=== PATIENT | male | born 1960 | race African-American/Black ===

== ENCOUNTER 2020-08-13 20:47 | Inpatient (IN) | payer MEDICAID, OTHER ==
[~2020-08-13] VITALS: Ht 180.3 cm; Wt 109.3 kg
--- NOTE | 2020-08-13 20:49 | NUR ---
TO ER BED [address] C/O BLE, GENITAL SWELLING, GEN WEAKNESS, FREQUENT FALLS X2 WEEKS. PT AAOX4 NO ACUTE DISTRESS NOTED, RESP EVEN AND UNLABORED. PLACE PT ON CARDIAC MONITORING, CONTINUOUS POX. ER NITO TAPIA AT BEDSIDE TO EVAL PT WITH ORDERS RECIEVED. WILL CARRY OUT ORDERS.
--- NOTE | 2020-08-13 20:58 | NUR ---
TOTAL PT CARE DONE NOTED TESTICULAR ABRASSION, BILATERAL LOWER EXTREMITY SWELLING AND MULTIPLE OPEN WOUNDS WITH NO BLEEDING NOTED.
[2020-08-13] MEDS ORDERED: ACETAMINOPHEN ES 500 MG TABLET ONE (21:23)
[2020-08-13] MEDS ORDERED: IV NS 0.9% 500 ML BAG IV ONE (21:30)
[2020-08-13] MEDS ORDERED: ACETAMINOPHEN ES 500 MG TABLET PO ONE (21:30)
[2020-08-13 21:43] LABS: BASOPHILS # (AUTO) 0.1 /CMM (0.0-0.2); BASOPHILS % (AUTO) 0.6 % (0.0-2.0); EOSINOPHILS % (AUTO) 1.9 % (0.0-6.0); HEMATOCRIT 35 % (39-51); HEMOGLOBIN 10.5 g/dL (13.5-17.5); LYMPHOCYTES # (AUTO) 0.5 /CMM (0.8-4.8); LYMPHOCYTES % (AUTO) 4.4 % (20.0-44.0); MEAN CORPUSCULAR HGB CONC 30 g/dl (31.0-36.0); MEAN CORPUSCULAR VOLUME 79 fL (80-96); MONOCYTES # (AUTO) 0.7 /CMM (0.1-1.30); MONOCYTES % (AUTO) 6.4 % (2.0-12.0); NEUTROPHILS % (AUTO) 86.7 % (43.0-81.0); PLATELET COUNT (AUTO) 333 /CMM (150-450); RED BLOOD CELL COUNT(AUTO) 4.35 MIL/uL (4.5-6.0); WHITE BLOOD COUNT (AUTO) 11.5 K/uL (4.3-11.0)
--- NOTE | 2020-08-13 21:43 | NUR ---
PT TRANSPORTED TO RADIOLOGY FOR CT HEAD.
[2020-08-13 21:53] LABS: CALCIUM, SERUM 8.9 mg/dL (8.5-10.1); CARBON DIOXIDE 22 mmol/L (21-32); CHLORIDE 109 mmol/L (98-107); GLUCOSE 95 mg/dL (74-106); SODIUM SERUM 144 mmol/L (136-145); UREA NITROGEN, BLOOD 39 mg/dL (7-18)
[2020-08-13] MEDS ORDERED: ONDANSETRON HCL/PF 4 MG/2 ML VIAL ONE (21:54)
[2020-08-13] MEDS ORDERED: VANCOMYCIN 1 GM VIAL ONE (21:55)
[2020-08-13] MEDS ORDERED: PIPERACILLIN /TAZOBACTAM 3.375 G VIAL IV ONE (21:55)
[2020-08-13] MEDS ORDERED: MORPHINE SULFATE INJ 4 MG/ML DISP.SYRIN ONE (21:55)
[2020-08-13] MEDS: PIPERACILLIN /TAZOBACTAM 3.375 G in IV D5W 50 ML IV ONE ×2 (21:58→22:16)
[2020-08-13] MEDS ORDERED: ONDANSETRON HCL/PF 4 MG/2 ML VIAL IV ONE (22:00)
[2020-08-13] MEDS ORDERED: MORPHINE SULFATE INJ 10 MG/ML DISP.SYRIN IV ONE (22:00)
--- NOTE | 2020-08-13 22:00 | NUR ---
ZOSYN 3.375GM NOT GIVEN. PT REPORTS ALLERGY TO PENICILLIN.
--- NOTE | 2020-08-13 22:04 | NUR ---
US AT BEDSIDE
[2020-08-13 22:06] LABS: ALANINE AMINOTRANSFERASE 27 U/L (12-78); ALBUMIN 2.6 g/dL (3.4-5.0); ALKALINE PHOSPHATASE 121 U/L (46-116); ASPARTATE AMINOTRANSFERASE 35 U/L (15-37); BILIRUBIN,DIRECT 0.8 mg/dL (0.0-0.2); BILIRUBIN,TOTAL 1.6 mg/dL (0.2-1.0); TOTAL PROTEIN, SERUM 8.2 g/dL (6.4-8.2)
[2020-08-13] MEDS: VANCOMYCIN 1 GM in IV D5W 250 ML IV ONE ×2 (22:08→22:25)
--- NOTE | 2020-08-13 22:13 | NUR ---
KATHARINEID SWABBED, SENT TO LAB.
--- NOTE | 2020-08-13 22:24 | NUR ---
HEMANT MENSAH [facility] PAGED FOR ADMISSION.
--- NOTE | 2020-08-13 22:40 | NUR ---
ER NITO TAPIA SPOKE TO HEMANT MENSAH [facility] REGARDING PT ADMIOSSION.
--- NOTE | 2020-08-13 23:06 | NUR ---
LAB CALLED REGARDING NEGATIVE COVID RESULT.
--- NOTE | 2020-08-13 23:08 | NUR ---
CALLED NURSING SUP FOR BED
[2020-08-13] MEDS ORDERED: ONDANSETRON HCL/PF 4 MG/2 ML VIAL IVP PRN (23:30)
[2020-08-13] MEDS ORDERED: TDAP [DIPH/PERTUSSIS/TET] 0.5 ML VIAL IM ONE (23:30)
[2020-08-13] MEDS ORDERED: FUROSEMIDE 20 MG/2 ML VIAL IV ONE (23:30)
[2020-08-13] MEDS ORDERED: MAG HYDROX/AL HYDROX/SIMETH 30 ML UDC PO PRN (23:30)
[2020-08-13] MEDS ORDERED: ACETAMINOPHEN 325 MG TABLET PO PRN (23:30)
[2020-08-13] MEDS ORDERED: MAGNESIUM HYDROXIDE 30 ML UDC PO PRN (23:30)
[2020-08-13] MEDS ORDERED: HYDROCODONE/APAP 5/325MG TABLET PO PRN (23:30)
[2020-08-13] MEDS ORDERED: ZOLPIDEM TARTRATE 5 MG TABLET PO PRN (23:30)
[2020-08-13] MEDS ORDERED: Z GUARD REMEDY 2 OZ OINT TP PRN (23:30)
--- NOTE | 2020-08-13 23:30 | NUR ---
PER RN SSN/SSBN WEAPONS EQUIPMENT OPERATOR PT WILL BE GOING TO 253 FOR MEDSURGE OVERFLOW.
--- NOTE | 2020-08-13 23:47 | NUR ---
PER RN SUP, PT WILL BE GOING TO 207.
--- NOTE | 2020-08-13 23:58 | NUR ---
REPORT CALLED TO HAND GLASS CUTTERTAMEKA MONDRAGON. WILL TRANSPORT PT VIA ACLS PROTOCOL.
[2020-08-14] VITALS: BP 175/108
--- NOTE | 2020-08-14 | NUR ---
STUD SETTER NOTES RECEIVED REPORT FROM ED, RN; AWAITING PATIENT ARRIVAL TO UNIT
--- NOTE | 2020-08-14 00:11 | NUR ---
CONCRETE CRUSHER LOADER OPERATOR NOTES PATIENT ARRIVED TO UNIT VIA GURNEY; ACCOMPANIED BY 2 ER STAFF; PATIENT AWAKE, A/OX4, BREATHING EVEN AND UNLABORED; SLIGHT DRY COUGH NOTED; PATIENT TOLERATING ROOM AIR WELL; SATTING AT 97% ON ROOM AIR; PATIENT DENIES ANY MEDICAL HISTORY BUT REPORTS HE IS ALLERGIC TO PCN; PATIENT REPORTED HE HAS BEEN HOMELESS SINCE NOVEMBER AND HAS TROUBLE FINDING HOMELESS SHELTERS AVAILABLE D/T COVID; PATIENT REPORTED HE ASKED SOMEONE TO CALL 911 FOR HIM BECAUSE "IT IS TIME TO GO TO THE HOSPITAL". PATIENT VERBALIZED, "WHATEVER ER CHECKED FROM MY BAGS, ARE ALL IN THERE, TRUST ME.'' PATIENT DID NOT WANT US TO GO THROUGH BELONGINGS AGAIN HE STATED HE IS VERY TIRED AND WOULD LIKE TO JUST GET SOME REST; PATIENT DENIES PAIN; SKIN ASSESSMENT DONE; VITALS OBTAINED; L AC #18 INTACT AND PATENT, FLUSHING WELL; NO S/S OF REDNESS OR INFILTRATION NOTED; PER ER, VANCO COMPLETED; PATIENT ORIENTED TO UNIT AND TO STAFF; SAFETY PRECAUTIONS IMPLEMENTED; BED LOCKED IN LOW POSITION; SIDE RAILSX2; CALL LIGHT WITHIN REACH; WILL CONT TO MONITOR Addendum: 08/14/20 at 0101 by NATE MONTGOMERY RN VITAL SIGNS BP: 175/108 HR: 122 RR: 20 SPO2: 97% ON ROOM AIR TEMP: 98.4F PATIENT DENIES PAIN AND REPORTED HE DOES NOT WANT TO BE MEDICATED; ALL HE WANTS IS TO SLEEP; NO DISTRESS NOTED; WILL CONT TO MONITOR PATIENT
[2020-08-14] MEDS ORDERED: VANCOMYCIN 1 GM in IV D5W 250ml IV ONE (00:30)
[2020-08-14] MEDS ORDERED: TDAP [DIPH/PERTUSSIS/TET] 0.5 ML VIAL IM ONE (00:38)
--- NOTE | 2020-08-14 00:45 | NUR ---
CROP PULLER NOTES SPOKE WITH ED FROM ER, TDAP WILL BE GIVEN BY ER NURSE; LASIX SCHEDULED 2330 GIVEN LATE, PATIENT ARRIVAL TIME ON UNIT 0011; WILL CONT TO MONITOR
--- NOTE | 2020-08-14 02:17 | NUR ---
ROUTE CDL DRIVER NOTES VTE SCORE OF 5; SUSHMA MARCOS NOTIFIED; PER OFFICE COORDINATOR RECEPTIONIST, ELIQUIS 2.5MG PO BID; ORDERS RECEIVED; WILL CONT TO MONITOR
--- NOTE | 2020-08-14 02:44 | NUR ---
METER TESTER PRIMARY NOTES RECEIVED LACTIC ACID RESULT FROM IRIS ADAMS
[2020-08-14 04:00] VITALS: BP 165/85
--- NOTE | 2020-08-14 06:45 | NUR ---
SCHOOL MANAGER CLOSING NOTES PATIENT RESTING IN BED COMFORTABLY; A/OX4, BREATHING EVEN AND UNLABORED; TOLERATING ROOM AIR WELL; SLIGHT COUGH NOTED; TELE MONITOR READS SINUS RHYTHM - SINUS TACHY 112; L AC #18 SL, INTACT AND PATENT; FLUSHING WELL; ALL NEEDS RENDERED; SAFETY PRECAUTIONS IMPLEMENTED; BED LOCKED IN LOW POSITION; SIDE RAILSX2; CALL LIGHT WTIHIN EASY REACH; WILL ENDORSE CATHRYN TO ONCOMING SHFIT
[2020-08-14 07:04] LABS: BASOPHILS # (AUTO) 0.1 /CMM (0.0-0.2); BASOPHILS % (AUTO) 0.7 % (0.0-2.0); EOSINOPHILS % (AUTO) 1.8 % (0.0-6.0); HEMATOCRIT 28 % (39-51); HEMOGLOBIN 8.9 g/dL (13.5-17.5); LYMPHOCYTES # (AUTO) 0.6 /CMM (0.8-4.8); LYMPHOCYTES % (AUTO) 6.3 % (20.0-44.0); MEAN CORPUSCULAR HGB CONC 32 g/dl (31.0-36.0); MEAN CORPUSCULAR VOLUME 78 fL (80-96); MONOCYTES % (AUTO) 10.2 % (2.0-12.0); NEUTROPHILS # (AUTO) 8.1 /CMM (1.8-8.9); PLATELET COUNT (AUTO) 269 /CMM (150-450); RED BLOOD CELL COUNT(AUTO) 3.59 MIL/uL (4.5-6.0); WHITE BLOOD COUNT (AUTO) 10.1 K/uL (4.3-11.0)
[2020-08-14 07:27] LABS: CALCIUM, SERUM 8.5 mg/dL (8.5-10.1); MAGNESIUM 1.9 mg/dL (1.8-2.4); PHOSPHORUS 3.2 mg/dL (2.5-4.9)
--- NOTE | 2020-08-14 07:30 | NUR ---
TELE/RN OPENING NOTE Received patient in bed, A&O x 4. Denies any pain/discomfort at this time. Breathing even and non-labored on RA, no SOB noted. No cardiac distress noted, on tele monitor reading ST 111. IV access noted on LAC #18, patent and intact, and flushing well. Sensation from all peripheral extremities intact. Bed locked in its lowest position, side rails x 2 up, call light in hand. Will continue with current medical management.
--- NOTE | 2020-08-14 08:32 | NUR ---
WOUND CARE CONSULT: REVIEWED CHART, NURSING DOCUMENTATION AND PHOTOS WHICH INDICATE WOUND TO SCROTUM AND WOUNDS TO LOWER EXTREMITIES, PRESENT ON ADMISSION. RECOMMEND SURGICAL AND DPM CONSULTS. DR POND AND DR FLORES NOTIFIED OF CONSULT REQUESTS. CURRENT DELIA SCORE IS 16. MD IN AGREEMENT WITH PLAN OF CARE.
[2020-08-14] MEDS ORDERED: APIXABAN 2.5 MG TABLET PO SCH (09:00)
--- NOTE | 2020-08-14 09:00 | NUR ---
TELE/RN NOTE Non-administered Eliquis 2.5 mg, notified [facility] SCIENTIFIC SYSTEMS ANALYST about patient's H&H dropping from 10.5/35 yesterday to 8.9/28 today. Also, per wound care nurse, Dr. Newell and Dr. Dorado notified for surgical and dpm consult. SUSHMA Sanz agreed to hold eliquis. No s/s of bleeding noted at this time. Will continue to monitor closely.
[2020-08-14] MEDS: NITROGLYCERIN 30 GM TUBE TP SCH ×2 (09:29→21:21)
[2020-08-14] MEDS: hydrALAZINE HCL 50 MG TABLET PO SCH ×3 (09:29→16:40)
[2020-08-14 11:15] LABS: THYROID STIMULATING HORMONE 4.932 uIU/mL (0.358-3.74)
--- NOTE | 2020-08-14 12:00 | NUR ---
TELE/RN NOTE Clarified DVT pump order with SUSHMA Sanz. Per Umu, DVT pump is contraindicated for patient due to BLE wounds. Noted and charted.
--- NOTE | 2020-08-14 12:00 | NUR ---
TELE/RN ALTON Florentino EDGER OPERATOR at bedside, assessed patient and explained plan of care. Clarified NPO order, per Umu, patient will be NPO except meds until abdominal ultrasound is done. When abdominal ultrasound is done, patient can be on low sodium diet. In addition, she ordered heparin 5000U SQ Q12H for chemical prophylaxis and discontinued apixaban 2.5 mg PO BID. Addendum: 08/14/20 at 1505 by SAMANTHA AMOS RN Orders noted and carried out. Will continue closely.
[2020-08-14] MEDS: HEPARIN SODIUM, PORCINE 5000 UNITS/1 ML VIAL SQ SCH ×2 (13:39→21:23)
--- NOTE | 2020-08-14 14:20 | NUR ---
Telecommunications Clerk consult requested by SUSHMA Bourne as patient is homeless. SW contacted TAMEKA Pena to confirm if patient is interviewable. Per Becky, patient is interviewable and will assist this SW to conduct SS assessment.
[2020-08-14 14:30] VITALS: BP 148/89
--- NOTE | 2020-08-14 14:30 | NUR ---
TELE/RN NOTE Re-checked patient's blood pressure after administering scheduled hydralazine 100 mg PO, noted at 148/89. Will continue to monitor closely.
--- NOTE | 2020-08-14 14:31 | NUR ---
TAMEKA Pena contacted this for this SW to conduct SS assessment. Patient is alert and oriented x4. Patient is a 60 year-old male. Patient reported to this SW that he has been homeless for approximately 8 months. Patient reports that he has been homeless at the start of the COVID-19 pandemic. Patient reported to this SW that he has been in contact with social security offices for him to obtain SSD. Patient does report that he is currently received approximately $200 in food stamps. Patient currently reports that he has had difficulty walking and standing because his knees and legs swell up. SW assessed patient for community resources and discussed with the patient. Patient declined resources stating "I do not want that. I do not like shelters, I am able to care for myself." Patient reports that prior to city-wide closure, patient had been sleeping in motel rooms. SW and patient discussed referral to [facility], patient denied this referral. Patient informed this SW that [facility] PT has seen the patient and patient would like to be placed in a usp facility if PT and patient's physician are agreeable in this plan. SW informed the patient that this SW would contact Case Management team to assist in a safe and proper discharge. Patient denied alcohol and drug use. Patient reported cigarette use, approximately 1/2 or 1 full box of cigarettes a day. Patient denied mental health diagnosis. Patient denied SI and HI. Patient denied auditory and visual hallucinations. Patient was calm and cooperative during this assessment. Patient thought process was clear and concise. Patient's speech was normal. Plan: SW to follow-up with case management team. SW remains available for all needs regarding this patient.
[2020-08-14 14:49] LABS: B-TYPE NATRIURETIC PEPTIDE 42478 PG/ML (0-125)
[2020-08-14 16:00] VITALS: BP 165/83
--- NOTE | 2020-08-14 19:23 | NUR ---
TELE/RN NOTE Collected urine specimen for urinalysis, sent to lab.
--- NOTE | 2020-08-14 19:25 | NUR ---
TELE/RN CLOSING NOTE Patient resting in bed, A&O x 4. All needs met and attended to. Denies any pain/discomfort throughout shift. Breathing even and non-labored on RA, no SOB noted. No cardiac distress noted, on tele monitor reading ST 108. IV access noted on LAC #18, patent and intact, and flushing well. Sensation from all peripheral extremities intact. Fall precautions maintained. Will endorse to health care coach nurse.
[2020-08-14 20:00] VITALS: BP 186/115
[2020-08-14 20:18] LABS: BILIRUBIN,URINE SMALL (NEGATIVE); BLOOD, URINE NEGATIVE Ery/uL (NEGATIVE); COLOR,URINE YELLOW (YELLOW); LEUKOCYTE ESTERASE ,URINE SMALL (NEGATIVE); NITRITE, URINE NEGATIVE (NEGATIVE); PH,URINE 5.5 (5.0-8.0); PROTEIN,URINE 100 mg/dl (NEGATIVE); UGLUCOSE NEGATIVE (NEGATIVE); UROBILINOGEN,URINE 0.2 EU/dL (0.2)
[2020-08-14 20:57] LABS: BACTERIA,URINE 1+ /HPF (None Seen); RBC,URINE 0-2 /HPF (0-2); SQUAMOUS EPITHELIAL CELL,UR 0-2 /HPF (None Seen)
[2020-08-14] MEDS: LEVOFLOXACIN 250 MG /D5W 50 ML 250 MG in PREMIX 1 EA IV SCH (21:20)
--- NOTE | 2020-08-14 21:47 | NUR ---
text HEMANT DOSHI REGARDING ELEVATED BLOOD PRESSURE 197/112 PATIENT ASYMPTOMATIC WAITING FOR RESPONSE
[2020-08-14] MEDS: VANCOMYCIN 1.5 GM in IV D5W 500 ML IV SCH (22:32)
[2020-08-15] VITALS (8 sets, daily range): BP systolic 124–180; BP diastolic 66–112
[2020-08-15] MEDS: CLONIDINE HCL 0.1 MG TABLET PO PRN ×2 (00:35→12:17)
--- NOTE | 2020-08-15 03:00 | NUR ---
rn notes/covid norris/pcr result: called lab, spoke with eleazar, verified about result of covid pcr. per eleazar, result is NEGATIVE, and resulted on 08/14/2020 at 2133 verified by TOYIN. For some reason, on [facility] serology tab, result of COVID PCR is showing only date of 08/13/2020 at 2201 (when specimen was collected)and next to it was the result " negative " (not showing information what date and time result is posted) and Covid19 antigen result is Negative dated 08/13/2020 at 2215. Eleazar then faxed the copy of the said Covid PCR Result, with posted result date and time and person who verified it. Copy will be given to TAMEKA Marr and another copy will be given to Aliyah/MSElio for record purposes.
--- NOTE | 2020-08-15 03:31 | NUR ---
TELE/RN RECEIVED PATIENT FROM [facility] [place] FOR CONTINUITY OF CARE. PATIENT AWAKE, ALERT ORIENTED, COMFORTABLE, NO C/O PAIN, NO DISTRESS NOTED, MADE COMFORTABLE IN BED, WILL MONITOR.
[2020-08-15] MEDS ORDERED: CLONIDINE HCL 0.1 MG TABLET PO ONE (05:00)
--- NOTE | 2020-08-15 06:29 | NUR ---
TELE/RN PATIENT IS STILL SLEEPING, APPEAR COMFORTABLE, NO SIGNS OF DISTRESS NOTED, ALL NEEDS ATTENDED AT THIS TIME, WILL CONTINUE TO MONITOR.
[2020-08-15 07:10] LABS: BASOPHILS # (AUTO) 0.1 /CMM (0.0-0.2); BASOPHILS % (AUTO) 0.8 % (0.0-2.0); EOSINOPHILS % (AUTO) 5.8 % (0.0-6.0); HEMATOCRIT 28 % (39-51); HEMOGLOBIN 8.7 g/dL (13.5-17.5); LYMPHOCYTES # (AUTO) 0.9 /CMM (0.8-4.8); LYMPHOCYTES % (AUTO) 10.5 % (20.0-44.0); MEAN CORPUSCULAR HGB CONC 32 g/dl (31.0-36.0); MEAN CORPUSCULAR VOLUME 78 fL (80-96); MONOCYTES # (AUTO) 0.8 /CMM (0.1-1.30); MONOCYTES % (AUTO) 9.7 % (2.0-12.0); NEUTROPHILS # (AUTO) 6.3 /CMM (1.8-8.9); NEUTROPHILS % (AUTO) 73.2 % (43.0-81.0); PLATELET COUNT (AUTO) 243 /CMM (150-450); RED BLOOD CELL COUNT(AUTO) 3.54 MIL/uL (4.5-6.0); WHITE BLOOD COUNT (AUTO) 8.6 K/uL (4.3-11.0)
--- NOTE | 2020-08-15 07:15 | NUR ---
ELECTRIC MOTOR TESTER ASSEMBLER OPENING NOTE Received patient asleep in bed appears calm and relaxed. On room air tolerating well. Patient is AO X4. Tele monitor reading SR to ST. Patient uses the urinal at bedside. Noted with bilateral lower extremities swelling and scaly skin. Per patient it does not hurt but itches a lot. Patient is currently NPO for ultrasound of the abdomen. Has LAC #18 flushes well. In the report patient has a high blood pressure. Will cont to monitor. Safety measures maintained. Call light within reach. Bed locked and on lowest position. Will cont to monitor.
[2020-08-15 07:42] LABS: ALBUMIN 1.8 g/dL (3.4-5.0); BILIRUBIN,TOTAL 0.9 mg/dL (0.2-1.0); CALCIUM, SERUM 8.3 mg/dL (8.5-10.1); CREATININE 2.8 mg/dL (0.6-1.3); MAGNESIUM 1.8 mg/dL (1.8-2.4); PHOSPHORUS 3.5 mg/dL (2.5-4.9); POTASSIUM 3.6 mmol/L (3.5-5.1)
[2020-08-15] MEDS ORDERED: AMLODIPINE BESYLATE 5 MG TABLET PO SCH (09:30)
[2020-08-15] MEDS: HEPARIN SODIUM, PORCINE 5000 UNITS/1 ML VIAL SQ SCH ×2 (09:41→20:15)
[2020-08-15] MEDS: NITROGLYCERIN 30 GM TUBE TP SCH ×2 (09:42→20:15)
[2020-08-15] MEDS: hydrALAZINE HCL 50 MG TABLET PO SCH ×3 (09:42→16:04)
--- NOTE | 2020-08-15 09:54 | NUR ---
URINE COLLECTED FROM PATIENT. CALLED LAB SPOKE TO
[2020-08-15] MEDS: NIFEdipine XL (30MG) 30 MG TAB PO SCH (11:00)
--- NOTE | 2020-08-15 11:11 | NUR ---
CALLED DR PARKER TO INFORM US ABDOMEN RESULTS. AWAITING RESPONSE.
[2020-08-15 12:33] LABS: CREATININE, URINE 192.4 MG/DL (30.0-125.0); URINE TOTAL PROTEIN 139.5 mg/dL (0-11.9)
--- NOTE | 2020-08-15 16:00 | NUR ---
PATIENT REQUEST SANDWICH BEFORE DINNER. CALLED DIETARY, PICKED UP SANDWICH AND GAVE TO PATIENT.
--- NOTE | 2020-08-15 17:07 | NUR ---
PATIENT REFUSED HYGIENE CARE. OFFERED X3 AND EDUCATED ABOUT PERSONAL HYGIENE. PATIENT CONTINUED TO REFUSE HYGIENE CARE.
--- NOTE | 2020-08-15 18:41 | NUR ---
RN CLOSING NOTE AT THIS TIME, PATIENT IS IN BED SLEEPING. A&OX4. ALL NEEDS MET AND ATTENDED TO. PATIENT REFUSED HYGIENE CARE THIS SHIFT. PATIENT HAS DENIED ANY PAIN/DISCOMFORT THROUGHOUT THE SHIFT. OXGYEN SATURATION 98% ON ROOM AIR, NO SOB OR RESPIRATORY DISTRESS AT THIS TIME. TELE MONITOR READING SINUS TACHYCARDIA ON TELE MONITOR. IV ACCESS ON LAC #18, PATENT AND INTACT. FLUSHING WELL. ALL SAFETY MEASURES TAKEN PER HOSPITAL POLICY. BED LOCKED IN LOWEST POSITION, SIDE RAILS UPX2, CALL LIGHT WITHIN REACH. WILL ENDORSE TO ENERGY CONSULTANT FOR CATHRYN.
--- NOTE | 2020-08-15 19:10 | NUR ---
RECEIVED PT ON BED AWAKE A/O X4 ABLE TO SAY NEEDS ON ROOM AIR SPO2 99% NO SIGN AND SYMPTOMS OF ANY DISTRESS, TELE MONITOR READS SINUS RHYTHM 100'S HAVE L AC IV # 18 PATENT AND FLUSHED, SAFETY MEASURE MAINTAINED BED ON LOWEST POSITION AND LOCKED SIDE RAILS UP WILL CONT TO MONITOR
[2020-08-15] MEDS: LEVOFLOXACIN 250 MG /D5W 50 ML 250 MG in PREMIX 1 EA IV SCH (20:14)
[2020-08-15] MEDS ORDERED: IPRATROPIUM NEB FS 0.5 MG/2.5 ML AMPUL.NEB NEB PRN (22:00)
[2020-08-15] MEDS ORDERED: ALBUTEROL FS 2.5 MG/0.5 ML VIAL.NEB NEB PRN (22:00)
[2020-08-16] VITALS: BP 137/88
[2020-08-16 04:00] VITALS: BP 149/78
[2020-08-16 06:32] LABS: CALCIUM, SERUM 8.3 mg/dL (8.5-10.1); CREATININE 2.6 mg/dL (0.6-1.3); POTASSIUM 3.6 mmol/L (3.5-5.1)
--- NOTE | 2020-08-16 07:15 | NUR ---
RN OPENING NOTES RECEIVED PT ON BED AWAKE, A/O X4. ON ROOM AIR SATURATING @99%. NO SOB OR ANY RESPIRATORY DISTRESS NOTED. TELE MONITOR READING SINUS RHYTHM. L AC #18 INTACT, PATENT AND FLUSHED. NO PAIN REPORTED AT THIS TIME. SAFETY MEASURE IMPLEMENTED. CALL LIGHT WITHIN REACH. BED LOCKED AND AT LOWEST POSITION WITH SIDE RAILS UP. WILL CONTINUE TO MONITOR
--- NOTE | 2020-08-16 07:32 | NUR ---
PT ON BED AWAKE NO SIGN AND SYMPTOMS OF RESPIRATORY DISTRESS, SPO2 92% ON 2L VIA NC NO SIGNIFICANT CHANGES ON CONDITION NOTED ALL NEEDS ATTENDED SAFETY MEASURE MAINTAINED CALL LIGHT WITHIN REACH BED ON LOWEST POSITION AND LOCKED WILL ENDORSED TO AM SHIFT NURSE
--- NOTE | 2020-08-16 07:33 | NUR ---
PT ON CHAIR SITTING NO SIGN AND SYMPTOMS OF RESPIRATORY DISTRESS, SPO2 95% ON O2 2L VIA NC NO SIGNIFICANT CHANGES ON CONDITION NOTED ALL NEEDS ATTENDED DILAUDID WAS GIVEN PRN PER PT REQUEST SAFETY MEASURE MAINTAINED CALL LIGHT WITHIN REACH BED ON LOWEST POSITION AND LOCKED WILL ENDORSED TO AM SHIFT NURSE
[2020-08-16 08:00] VITALS: BP 159/86
[2020-08-16] MEDS: NITROGLYCERIN 30 GM TUBE TP SCH (08:20)
[2020-08-16] MEDS: hydrALAZINE HCL 50 MG TABLET PO SCH ×3 (08:20→17:44)
[2020-08-16] MEDS: NIFEdipine XL (30MG) 30 MG TAB PO SCH (08:21)
[2020-08-16] MEDS: HEPARIN SODIUM, PORCINE 5000 UNITS/1 ML VIAL SQ SCH ×2 (08:32→20:08)
[2020-08-16 09:14] LABS: PTH, INTACT 126 pg/mL (15-65)
[2020-08-16] MEDS: ISOSORBIDE DINITRATE (20MG) 20 MG TABLET PO SCH ×2 (11:00→17:44)
[2020-08-16] MEDS: VANCOMYCIN 1.5 GM in IV D5W 500 ML IV SCH (11:02)
[2020-08-16 12:00] VITALS: BP 135/62
[2020-08-16] MEDS: METOPROLOL TARTRATE 50 MG TABLET PO SCH ×2 (12:40→17:44)
[2020-08-16 16:00] VITALS: BP 123/77
--- NOTE | 2020-08-16 19:20 | NUR ---
RN CLOSING NOTES PT RESTING IN BED AWAKE, A/O X4. ON ROOM AIR SATURATING @99%. NO SOB OR ANY RESPIRATORY DISTRESS NOTED. TELE MONITOR READING SINUS RHYTHM. L AC #18 INTACT, PATENT AND FLUSHED. NO PAIN REPORTED AT THIS TIME. SAFETY MEASURE IMPLEMENTED. CALL LIGHT WITHIN REACH. BED LOCKED AND AT LOWEST POSITION WITH SIDE RAILS UP. WILL ENDORSE TO NIGHT NURSE FOR CATHRYN
[2020-08-16] MEDS: LEVOFLOXACIN 250 MG /D5W 50 ML 250 MG in PREMIX 1 EA IV SCH (19:58)
[2020-08-16 20:00] VITALS: BP 123/79
--- NOTE | 2020-08-16 20:00 | NUR ---
RN NOTES PATIENT AWAKE, ALERT, AND ORIENTED X4. ON ROOM AIR SATURATING 96%. NO SOB OR ANY RESPIRATORY DISTRESS. DENIES ANY PAIN OR DISCOMFORT AT THIS TIME. WITH RIGHT HAND #22, PATENT, INTACT, AND FLUSHED. BED LOCKED AND IN LOWEST POSITION. SIDE RAILS UP X2. ALL SAFETY MEASURES IMPLEMENTED. CALL LIGHT WITHIN REACH. WILL CONTINUE TO MONITOR.
--- NOTE | 2020-08-17 | NUR ---
PT PULLED OUT IV. PT IS CONFUSED AND UNAWARE OF ACTIONS. CHARGE NURSE MADE AWARE. WILL CONTINUE TO CLOSELY MONITOR. Addendum: 08/18/20 at 0008 by GIGI CASTELLANOS RN WRONG DATE DOCUMENTED
[2020-08-17] MEDS: METOPROLOL TARTRATE 50 MG TABLET PO SCH ×4 (00:58→17:43)
[2020-08-17 04:00] VITALS: BP 130/75
--- NOTE | 2020-08-17 04:45 | NUR ---
0445 SUMMONED TO PATIENT'S ROOM BY RN NOLBERTO, FOUND PATIENT SITTING ON THE FLOOR LEANING ON SIDE BED. WHEN ASKED HOW HE FELL PATIENT STATED HE WAS TRYING TO REACH FOR SOMETHING AND SLIPPED. PATIENT ABLE TO ASSIST WHEN PUT BACK TO BED BY 3 RNS. DENIES PAIN OR ANY DISCOMFORT WHEN ASKED. NO NEW SKIN BREAKDOWN NOTED. AM CARE RENDERED. INSTRUCTED PATIENT TO USE CALL LIGHT FOR ASSISTANCE. PLACED SIDE RAILS UP AND BED ALARM TURNED ON. VITAL SIGNS TAKEN FOLLOWS BP 131/76, HR75, RR20, O2 SAT 100% TEMP 97.6. NOTIFIED DR. CRUZ OF INCIDENT. AWAITING CALL BACK. NOTIFIED BALLAST CLEANING MACHINE OPERATOR CYNTHIA OF INCIDENT.
[2020-08-17 06:21] LABS: CALCIUM, SERUM 7.1 mg/dL (8.5-10.1); CREATININE 2.3 mg/dL (0.6-1.3); POTASSIUM 3.5 mmol/L (3.5-5.1)
--- NOTE | 2020-08-17 06:45 | NUR ---
3545 DR CRUZ REPLIED WITH NO NEW ORDER BUT TO MONITOR. PATIENT AWAKE IN BED WATCHING TV, NO SIGNS OF DISTRESS NOTED. NO CHANGES IN NEURO STATUS NOTED. CONT TO DENY PAIN WHEN ASKED. KEPT CLEAN AND COMFORTABLE. ALL NEEDS ANTICIPATED. BED AT LOWEST POSITION WITH ALARM ON FOR SAFETY. SIDE RAILS UP AND CALL LIGHT PLACED WITHIN EASY REACH OF PATIENT. INSTRUCTED TO CALL FOR ASSISTANCE.
--- NOTE | 2020-08-17 07:30 | NUR ---
RN NOTES PATIENT ALERT, AND ORIENTED X4. ON ROOM AIR SATURATING 99%. NO SOB OR ANY RESPIRATORY DISTRESS. DENIES ANY PAIN OR DISCOMFORT AT THIS TIME. WITH RIGHT WRIST #22, PATENT, INTACT, AND FLUSHED. BED LOCKED AND IN LOWEST POSITION. SIDE RAILS UP X2. BED ALARM ON. ALL SAFETY MEASURES IMPLEMENTED. CALL LIGHT WITHIN REACH. ENDORSED TO NEXT SHIFT.
--- NOTE | 2020-08-17 07:30 | NUR ---
RN OPENING NOTES RECEIVED PATIENT IN BED, A/OX2, ON ROOM AIR, NO SOB, NO RESP DISTRESS NOTED, SPO2 IS 95%, PATIENT IS ON BED REST, BLE SCABS NOTED ON SKIN, CARDIAC DIET NOTED, IV LINE R WRIST, PATENT AND INTACT, FLUSHES WELL, HOB ELEVATED, SIDE RAILS UP, BED ALARM IS ON,SAFETY MEASURES IN PLACE CALL LIGHT IN REACH, WILL CONT TO MONITOR
[2020-08-17 08:00] VITALS: BP 125/68
[2020-08-17] MEDS: HEPARIN SODIUM, PORCINE 5000 UNITS/1 ML VIAL SQ SCH ×2 (08:38→21:49)
[2020-08-17] MEDS: NIFEdipine XL (30MG) 30 MG TAB PO SCH (08:39)
[2020-08-17] MEDS: hydrALAZINE HCL 50 MG TABLET PO SCH ×3 (08:40→17:39)
[2020-08-17] MEDS: ISOSORBIDE DINITRATE (20MG) 20 MG TABLET PO SCH ×2 (08:40→17:42)
[2020-08-17 12:00] VITALS: BP 124/71
[2020-08-17 15:07] LABS: *SPE A/G RATIO 0.6 (0.7-1.7); *SPE ALPHA-1-GLOBULIN 0.3 g/dL (0.0-0.4); *SPE ALPHA-2-GLOBULIN 0.8 g/dL (0.4-1.0); *SPE BETA GLOBULIN 0.9 g/dL (0.7-1.3); *SPE GLOBULIN, TOTAL 3.6 g/dL (2.2-3.9); *SPE M-SPIKE Not Observed g/dL (Not Observed); *SPEGAMMA GLOBULIN 1.6 g/dL (0.4-1.8)
--- NOTE | 2020-08-17 18:59 | NUR ---
RN CLOSING NOTES PATIENT REMAINS IN BED, A/OX2/3, ON ROOM AIR, TOLERATING WELL, , SPO2 IS 97%, PATIENT IS ON BED REST, SKIN CARE AND HYGIENE ASSISTANCE PROVIDED, MEDS GIVEN, IV LINE R WRIST, PATENT AND INTACT, FLUSHES WELL, HOB ELEVATED, SIDE RAILS UP, BED ALARM IS ON,SAFETY MEASURES IN PLACE CALL LIGHT IN REACH, WILL ENDORSE TO PM SHIFT RN FOR CATHRYN
--- NOTE | 2020-08-17 19:05 | NUR ---
RN OPENING NOTES RECEIVED PT IN BED. ON ROOM AIR NO SHORTNESS OF BREATH OR DIFFICULTY BREATHING NOTED AT THIS TIME. BREATHING IS EVEN AND UNLABORED. PT DROWSY. AT THIS TIME. SPEECH IS UNCLEAR. ENDORSED BY AM NURSE BASELINE FOR PT. PT PULLED OUT IV SITE. WILL APPLY NEW LINE. PT HAS SCABS AND OPEN WOUNDS ON BLE. SKIN TEAR OF THE SCROTUM NOTED. PT DENIES PAIN AT THIS TIME. SAFETY MEASURES IN PLACE. HOB ELEVATED. BED LOCKED IN LOWEST POSITION. BED ALARM ON. ID BAND ON. CALL LIGHT WITHIN REACH.
[2020-08-17 20:00] VITALS: BP 143/67
[2020-08-17] MEDS: LEVOFLOXACIN (250MG) 250 MG TABLET PO SCH ×2 (20:45→21:24)
--- NOTE | 2020-08-17 20:50 | NUR ---
PERFORMED NEURO ASSESSMENT AND NURSES SWALLOW ASSESSMENT DUE TO PT BEING DROWSY WITH PO MEDICATIONS SCHEDULED.
[2020-08-17] MEDS: VANCOMYCIN 1.5 GM in IV D5W 500 ML IV SCH (22:34)
--- NOTE | 2020-08-18 00:08 | NUR ---
PT PULLED OUT IV. PT IS CONFUSED AND UNAWARE OF ACTIONS. WILL APPLY NEW LINE. CHARGE NURSE MADE AWARE. WILL CONTINUE TO CLOSELY MONITOR.
--- NOTE | 2020-08-18 00:10 | NUR ---
NEW IV LINE RIGHT HAND #22 WITH GOOD BLOOD RETURN NOTED WILL CONTINUE TO MONITOR.
[2020-08-18] MEDS: METOPROLOL TARTRATE 50 MG TABLET PO SCH ×3 (01:00→12:25)
[2020-08-18 04:00] VITALS: BP 140/80
--- NOTE | 2020-08-18 04:51 | NUR ---
PT RESTING, ON ROOM AIR STILL. TOLERATING WELL. O2 SATURATING IS 98%. DENIES PAIN AT THIS TIME. WILL CONTINUE TO MONITOR.
[2020-08-18 06:57] LABS: CALCIUM, SERUM 8.4 mg/dL (8.5-10.1); CREATININE 2.8 mg/dL (0.6-1.3)
--- NOTE | 2020-08-18 07:21 | NUR ---
RN CLOSING NOTES PT CURRENTLY RESTING IN BED. STILL CONFUSED YET COOPERATIVE. NEEDS ATTENDED. NO COMPLAINT OF PAIN THROUGHOUT THE NIGHT. NO S/S OF SOB OR RESPIRATORY DISTRESS NOTED. UPON BEDSIDE REPORT PT PULLED OUT IV SITE. ENDORSED TO AM NURSE. SAFETY MEASURES IN PLACE. HOB ELEVATED. BED LOCKED IN LOWEST POSITION BED ALARM ON. ENDORSED TO AM NURSE FOR CONTINUATION OF CARE.
--- NOTE | 2020-08-18 07:30 | NUR ---
RN OPENING NOTES Received patient in bed, A/Ox3, on room air, tolerating well, no SOB, SPO2 is 100%, denies pain or discomfort, recently removed IV line, provided reorientation to room and unit, verbalized understanding, BLE wound and scabs noted on legs no bleeding noted. Safety measures in place, call light in reach, HOB elevated, daily weight is documented, bed is locked , in lowest position, will cont to monitor
[2020-08-18 08:00] VITALS: BP 141/79
[2020-08-18] MEDS: hydrALAZINE HCL 50 MG TABLET PO SCH ×2 (08:46→12:25)
[2020-08-18] MEDS: NIFEdipine XL (30MG) 30 MG TAB PO SCH (08:46)
[2020-08-18] MEDS: ISOSORBIDE DINITRATE (20MG) 20 MG TABLET PO SCH (08:47)
[2020-08-18] MEDS: HEPARIN SODIUM, PORCINE 5000 UNITS/1 ML VIAL SQ SCH (08:49)
[2020-08-18 12:00] VITALS: BP 146/71
[2020-08-18 12:25] VITALS: BP 146/71
--- NOTE | 2020-08-18 16:07 | NUR ---
Discharge notes [facility] transportation unit 30 is t bed site, patient ID and destination confirmed, iv line removed, id band removed, discharge paperwork and education provided, wi discharge to [facility], report given to Kasia nursery supervisor
[2020-08-18] MEDS ORDERED: SILVER SULFADIAZINE 50 GM JAR TP SCH (17:00)
== END 2020-08-18 16:45 | DRG 469 ==
LOC: ER 20:49 → TELE2 23:52 → TELE1 08-15 02:45 → MEDSG1 08-16 13:59 → MED 08-18 14:43
PROVIDERS: ADMIT Nurse Practitioner Acute Care; ATTEND Internal Medicine
DX: N17.0 Acute kidney failure with tubular necrosis (principal); L03.115 Cellulitis of right lower limb; I13.0 Hypertensive heart and chronic kidney disease with heart failure and stage 1 through stage 4 chronic kidney disease, or unspecified chronic kidney disease; L03.116 Cellulitis of left lower limb; E43 Unspecified severe protein-calorie malnutrition; Z68.35 Body mass index [BMI] 35.0-35.9, adult; N18.9 Chronic kidney disease, unspecified; I50.21 Acute systolic (congestive) heart failure; B35.1 Tinea unguium; E87.2 Acidosis; F17.210 Nicotine dependence, cigarettes, uncomplicated; Z91.81 History of falling; R53.1 Weakness; Z59.0 Homelessness; E88.09 Other disorders of plasma-protein metabolism, not elsewhere classified; Z68.33 Body mass index [BMI] 33.0-33.9, adult; I21.A1 Myocardial infarction type 2; E80.6 Other disorders of bilirubin metabolism; S31.30XA Unspecified open wound of scrotum and testes, initial encounter; L89.326 Pressure-induced deep tissue damage of left buttock; D50.9 Iron deficiency anemia, unspecified; D72.829 Elevated white blood cell count, unspecified; N25.81 Secondary hyperparathyroidism of renal origin; K80.20 Calculus of gallbladder without cholecystitis without obstruction; R18.8 Other ascites; R29.6 Repeated falls; N45.1 Epididymitis; D63.1 Anemia in chronic kidney disease; N26.1 Atrophy of kidney (terminal)
CPT/HCPCS: 36415; 70450-TC; 71045-TC; 76700-TC; 76770-TC; 76870-TC; 80048-TC; 80053-TC; 80061-TC; 80076-TC; 80202-TC; 81001; 82550-TC; 82553; 82570-TC; 82728-TC; 82962-TC; 83540-TC; 83605-TC; 83735-TC; 83880; 83970; 84100-TC; 84155; 84155-TC; 84165; 84300-TC; 84439-TC; 84443-TC; 84484-TC; 85025-TC; 87040-TC; 87081-TC; 87086-TC; 90715; 93307-TC; 93970-TC; 94762-TC; 97112-TC; 97116-TC; 97530-TC; A4216; A4349; C9803; G0378; J1644; J1940; J1956; J2270; J2405; J2543; J3370; J7040; J7050; J7060; U0003